=== PATIENT | female | born 1970 | race Caucasian/White ===

== ENCOUNTER → 2017-07-05 | Outpatient (CLI) | payer MEDICARE, OTHER ==
--- NOTE | 2017-07-05 11:59 | MM ---
Reason for exam: clinical finding. History: Family history of breast cancer in aunt at age 45 and breast cancer in aunt at age 50. Lumpectomy of both breasts, 2008. Indicated problem(s): non-bloody discharge in both breasts. Physical Findings: Nurse did not find any significant physical abnormalities on exam. MG 3D Diag Mammo W/Cad RODOLFO Bilateral CC and MLO view(s) were taken. The breast tissue is heterogeneously dense. This may lower the sensitivity of mammography. Nodularity upper outer quadrant left breast. Ultrasound is recommended. These results were verbally communicated with the patient and result sheet given to the patient on 07/05/17. ASSESSMENT: Incomplete: need additional imaging evaluation, BI-RAD 0 RECOMMENDATION: Ultrasound of the left breast. Manage patient on a clinical basis.
--- NOTE | 2017-07-05 12:03 | USB ---
Reason for exam: additional evaluation requested from abnormal screening. History: Family history of breast cancer in aunt at age 45 and breast cancer in aunt at age 50. Lumpectomy of both breasts, 2008. US Breast Limited LT Left breast ultrasound demonstrates a 0.41 x 0.34 x 0.4cm lesion too small to characterize at 12 o'clock, a 0.65 x 0.3 x 0.8cm solid lesion at the nipple for which a biopsy is recommended and a 0.35 x 0.21 x 0.5cm lesion too small to characterize at 4 o'clock. These results were verbally communicated with the patient and result sheet given to the patient on 07/05/17. ASSESSMENT: Suspicious, BI-RAD 4 RECOMMENDATION: Ultrasound core biopsy of the left breast. Manage patient on a clinical basis. Called with mammographic findings and has scheduled an appointment for the patient with Dr. Landers. Biopsy scheduled for 07/08/17 at 11:30. PRELIMINARY REPORT CALLED AND FAXED TO DR. LANDERS ON 07/05/17 /TMP.
== END | disposition home or self-care (01) ==
LOC: RADMAMWWP 10:20
PROVIDERS: ATTEND Family Medicine
DX: N64.52 Nipple discharge (principal)
CPT/HCPCS: 76642; G0204; G0279

== ENCOUNTER → 2017-07-05 | Outpatient (CLI) | payer MEDICARE, OTHER ==
--- NOTE | 2017-07-05 10:53 | US ---
EXAMINATION TYPE: US thyroid st tissue head/neck DATE OF EXAM: 07/05/2017 COMPARISON: NONE CLINICAL HISTORY: E03.9 Hypothyroidism. Total thyroidectomy 2010 Bilateral neck scanned, no evidence of lymphadenopathy or residual tissue growth. IMPRESSION: Total thyroidectomy changes without evidence for residual mass or residual thyroid kyle ballesteros.
== END | disposition home or self-care (01) ==
LOC: RADUSWWP 10:24
PROVIDERS: ATTEND Internal Medicine Endocrinology, Diabetes & Metabolism
DX: E89.0 Postprocedural hypothyroidism (principal)
CPT/HCPCS: 76536

== ENCOUNTER → 2017-07-15 | Day surgery (SDC) | payer MEDICARE, OTHER ==
[2017-07-15 11:32] VITALS: RESP 18; TEMP 98; BMI 37.0
--- NOTE | 2017-07-15 12:44 | USB ---
EXAMINATION TYPE: US biopsy breast VAD LT DATE OF EXAM: 07/15/2017 CLINICAL HISTORY: R92.8 ABN MAMMO. TECHNIQUE: Ultrasound guided core biopsy of left breast. COMPARISON: Ultrasound 07/05/2017 FINDINGS: The procedure of ultrasound guided core biopsy was explained to the patient. Benefits, alt ernatives, and risks were discussed. An informed consent was then obtained. The patient was placed in supine positioning for imaging and for the procedure. The overlying skin w as prepped and draped in usual sterile fashion. Lidocaine buffered with bicarbonate was used as anes thetic into the skin and subcutaneous tissue up to area of concern in the left breast. A singh was ma de with surgical scalpel. Under ultrasound guidance, a 12-gauge vacuum assisted biopsy gun device was used to obtain 5 core bebo ples. Following this, a biopsy clip was left in lesion. The patient tolerated the procedure well without any immediate complication. The patient was kept in the radiology department for short stay after the procedure and then discharged home in stable condi tion. Patient was sent to mammography for postclip placement imaging IMPRESSION: Successful, uncomplicated ultrasound guided core biopsy of area of concern in the left br east, full pathology results to follow. Recommendations: Recommendations are pending pathology results
[2017-07-15 14:52] VITALS: BP 114/78; PULSE 61
--- NOTE | 2017-07-19 08:25 | MM ---
Reason for exam: additional evaluation requested from abnormal screening. Last mammogram was performed less than 1 month ago. History: Family history of breast cancer in aunt at age 45 and breast cancer in aunt at age 50. Lumpectomy of both breasts, 2008. MG Diagnostic Mammo LT Wo CAD CC and LM view(s) were taken of the left breast. Prior study comparison: July 05, 2017, bilateral MG 3d diag mammo w/cad RODOLFO. ASSESSMENT: Post procedure mammogram for marker placement RECOMMENDATION: Ultrasound of the left breast in 6 months. PENDING PATHOLOGY RESULTS.
== END ==
LOC: RADUSWWP 11:00
PROVIDERS: ATTEND Family Medicine
DX: D24.2 Benign neoplasm of left breast (principal); N60.32 Fibrosclerosis of left breast; R92.8 Other abnormal and inconclusive findings on diagnostic imaging of breast; N60.02 Solitary cyst of left breast; N60.82 Other benign mammary dysplasias of left breast; N60.22 Fibroadenosis of left breast; N60.92 Unspecified benign mammary dysplasia of left breast; Z88.1 Allergy status to other antibiotic agents; Z88.5 Allergy status to narcotic agent
CPT/HCPCS: 88305; 19083; G0206; A4648; J2001

== ENCOUNTER → 2017-10-05 | Outpatient (CLI) | payer MEDICARE, OTHER ==
--- NOTE | 2017-10-05 13:25 | US ---
EXAMINATION TYPE: US venous doppler duplex LE RT DATE OF EXAM: 10/05/2017 12:58 PM COMPARISON: NONE CLINICAL HISTORY: RLE Pain and Swelling M79.661, R22.41. palpable lump right calf SIDE PERFORMED: Right TECHNIQUE: The lower extremity deep venous system is examined utilizing real time linear array sonog rishabh with graded compression, doppler sonography and color-flow sonography. VESSELS IMAGED: External Iliac Vein (EIV) Common Femoral Vein Deep Femoral Vein Greater Saphenous Vein * Femoral Vein Popliteal Vein Small Saphenous Vein * Proximal Calf Veins (* superficial vessels) Right Leg: Negative for DVT Cystic area visualized at the patient's area of concern measuring 0.3 x 0.3 x 0.3 cm. Grayscale, color doppler, spectral doppler imaging performed of the deep veins of the lower extremiti es. There is normal flow, compressibility, vascular waveforms. IMPRESSION: 1. No sonographic evidence of deep venous thrombosis within the right lower extremity. 2. In the region of the patient's palpable abnormality there is a subcutaneous 3 mm cyst. This could represent resolving hematoma or sequela of prior trauma. Short-term follow-up could be performed to e nsure stability.
== END | disposition home or self-care (01) ==
LOC: RADUSWWP 12:17
PROVIDERS: ATTEND Family Medicine
DX: L72.8 Other follicular cysts of the skin and subcutaneous tissue (principal)

== ENCOUNTER → 2019-09-06 | Outpatient (CLI) | payer MEDICARE, OTHER ==
--- NOTE | 2019-09-06 19:53 | CONS ---
CONSULTATION DATE OF SERVICE: 09/06/2019 This patient is a 49-year-old lady who has been evaluated in [facility] for possible obstructive sleep apnea-hypopnea syndrome. HISTORY OF PRESENT ILLNESS/SLEEP-WAKE EVALUATION: Patient's usual sleep schedule on working days is from 10 p.m. to 5 or 6 a.m. and on weekends from 11 p.m. until 6 or 7 a.m. Sometimes she has problems with falling asleep. She has a TV set in the bedroom. She sleeps in different positions with her . According to him, she has loud snoring and witnessed episodes of stopped breathing during sleep. The patient wakes up from sleep up to 6 times, with 2 episodes of nocturia and episodes of choking and gasping for air, panic attacks, palpitations, restless legs, sweating. During the day, the patient feels significantly sleepy. [place] Sleepiness Scale is in extremely high range at 20. She may take naps during the day, depending on whether her situation allows her to do it. She drinks 2 caffeinated beverages during the day. No history of hypnagogic hallucinations, sleep paralysis or cataplexy. PAST MEDICAL HISTORY: Past medical history is positive for: 1. Graves' disease. 2. Hypertension. 3. Migraine. PAST SURGICAL HISTORY: 1. Thyroidectomy for Graves' disease, presently on thyroid supplement. 2. Right knee surgery. 3. Bilateral breast lumpectomy, benign. 4. Sinus surgery and mid turbinate resection. MEDICATIONS: 1. Synthroid. 2. Toprol. 3. Clonidine. 4. Topamax. SOCIAL HISTORY: Positive for smoking occasionally. Quit in 1999. Alcohol consumption occasional. FAMILY HISTORY: Hypertension, angina, fibromyalgia, sinus problems, headaches, insomnia, sleep apnea, ulcers, thyroid problems, restless legs. REVIEW OF SYSTEMS: Multiple awakenings from sleep, tiredness and sleepiness during the day. PHYSICAL EXAMINATION: GENERAL: A pleasant lady without distress. VITAL SIGNS: BP 148/86, HR 69, RR 16, height 5 feet 7 inches, weight 270.0, body mass index 42.2, temperature 98.2, oxygen saturation at room air 97%. HEENT: PERRLA, EOMI. Evaluation of oropharynx showed tongue protrudes midline. Extremely low position of soft palate. Mallampati IV. Restriction of nasal breathing bilaterally. NECK: Supple. No JVD. Thyroid is not palpable. Wide neck; 15-1/2 inches in circumference. LUNGS: Clear to percussion and to auscultation. Good air exchange. No wheezing or rhonchi. HEART: S1, S2 regular. No murmurs, gallops or rubs. ABDOMEN: Obese. EXTREMITIES: No clubbing or cyanosis. 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 Cranial nerves 2 to 7 intact. There is no fasciculation or atrophy. noted. No focal deficits observed. IMPRESSION: 1. Loud snoring, multiple awakenings from sleep, extremely low position of soft palate, Mallampati IV, wide neck, significant excessive daytime sleepiness; obstructive sleep apnea-hypopnea syndrome. 2. Obesity with body mass index 42.2. 3. Hypertension. 4. Migraines. 5. History of Graves' disease, status post thyroidectomy. 6. Hypothyroidism, on thyroid hormone replacement treatment at present. 7. Status post section. 8. Status post tubal ligation. 9. Status post sinus surgery. 10.Status post right knee surgery. 11.Status post bilateral lumpectomy with benign results. PLAN: 1. Polysomnography for evaluation of patient's breathing during sleep. 2. CPAP/BiPAP titration if sleep study confirms obstructive sleep apnea-hypopnea syndrome. 3. Preferable position during sleep on the side. 4. No driving if patient feels any sleepiness. 5. I will see patient for follow up visit to explain results of testing and following plan. Thank you very much for referring this patient for consultation. Sincerely, Josef Menjivar MD, PhD, FAASM Diplomat of [employer] [facility] [place] MMODL / IJN: [id number] /
== END | disposition home or self-care (01) ==
LOC: SLEEP 14:22
PROVIDERS: ATTEND Internal Medicine
DX: G47.33 Obstructive sleep apnea (adult) (pediatric) (principal); E66.9 Obesity, unspecified; I10 Essential (primary) hypertension; G43.909 Migraine, unspecified, not intractable, without status migrainosus; E89.0 Postprocedural hypothyroidism; Z68.41 Body mass index [BMI] 40.0-44.9, adult; Z98.890 Other specified postprocedural states; Z86.2 Personal history of diseases of the blood and blood-forming organs and certain disorders involving the immune mechanism; Z98.51 Tubal ligation status; Z83.6 Family history of other diseases of the respiratory system; Z90.13 Acquired absence of bilateral breasts and nipples; Z79.899 Other long term (current) drug therapy; Z79.890 Hormone replacement therapy
CPT/HCPCS: 99211

== ENCOUNTER 2021-12-29 15:51 | Inpatient (IN) | payer OTHER, MEDICARE ==
[2021-12-29 16:20] LABS: ALT 182 U/L (4-34); AST 217 U/L (14-36); African American GFR (CKD) 84 (>60 ml/min/1.73 sqM); Albumin 4.9 g/dL (3.5-5.0); Alcohol <10 mg/dL; Alkaline Phosphatase 74 U/L (38-126); Anion Gap 11 mmol/L; Blood Urea Nitrogen 14 mg/dL (7-17); Calcium 9.7 mg/dL (8.4-10.2); Carbon Dioxide 25 mmol/L (22-30); Chloride 106 mmol/L (98-107); Glucose 191 mg/dL (74-99); Non-African American GFR(CKD) 73 (>60 ml/min/1.73 sqM); Potassium 4.2 mmol/L (3.5-5.1); Sodium 142 mmol/L (137-145); Total Bilirubin 0.7 mg/dL (0.2-1.3); Total Protein 7.9 g/dL (6.3-8.2)
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
[2021-12-29 16:30] LABS: Prothrombin Time 10.6 sec (9.0-12.0)
[2021-12-29 16:39] LABS: Basophils # (A) 0.1 k/uL (0-0.2); Basophils % (A) 1 %; Eosinophils # (A) 0.1 k/uL (0-0.7); Eosinophils % (A) 0 %; HCT 47.7 % (34.0-46.0); HGB 16.1 gm/dL (11.4-16.0); Lymphocytes # (A) 1.6 k/uL (1.0-4.8); Lymphocytes % (A) 7 %; MCH 31.7 pg (25.0-35.0); MCHC 33.8 g/dL (31.0-37.0); MCV 93.8 fL (80.0-100.0); Mean Platelet Volume 8.1; Monocytes # (A) 0.9 k/uL (0-1.0); Monocytes % (A) 4 %; Neutrophils # (A) 19.1 k/uL (1.3-7.7); Neutrophils % (A) 87 %; Partial Thromboplastin Time 19.8 sec (22.0-30.0); Platelet Count 269 k/uL (150-450); RBC 5.08 m/uL (3.80-5.40); RDW 13.8 % (11.5-15.5)
[2021-12-29 16:40] LABS: Glucose,Whole Blood 137 mg/dL (75-99)
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
[2021-12-29] MEDS ORDERED: NALOXONE 0.4 MG/ML 1 ML VIAL IV PRN (18:01)
[2021-12-29] MEDS ORDERED: fentaNYL (PF) 50 MCG/ML 2 ML AMP IVP STA (18:25)
[2021-12-29 18:38] LABS: Amphetamine Screen,Urine Not Detected (NotDetected); Appearance,Urine Clear (Clear); Barbiturate Screen,Urine Not Detected (NotDetected); Benzodiazepines Screen,Urine Detected (NotDetected); Bilirubin,Urine Negative (Negative); Blood,Urine Moderate (Negative); Cocaine Screen,Urine Not Detected (NotDetected); Color,Urine Yellow; Glucose,Urine (UA) Negative (Negative); Ketones,Urine 1+ (Negative); Leukocyte Esterase,Urine Negative (Negative); Methadone Screen, Urine Not Detected (NotDetected); Mucus,Urine Rare /hpf; Nitrite,Urine Negative (Negative); Opiate Screen,Urine Not Detected (NotDetected); Oxycodone Screen, Urine Not Detected (NotDetected); PH, Urine 6.5 (5.0-8.0); Phencyclidine Screen,Urine Not Detected (NotDetected); Protein,Urine 2+ (Negative); RBC,Urine 40 /hpf (0-5); Squamous Epithelial Cell,Urine <1 /hpf (0-4); Tricyclic Antidepressant,Urine Not Detected (NotDetected); Urn Cannabinoid Scrn Not Detected (NotDetected); Urobilinogen,Urine <2.0 mg/dL (<2.0); WBC,Urine 5 /hpf (0-5)
[2021-12-29 18:44] LABS: Specific Gravity,Urine >1.050 (1.001-1.035)
[2021-12-29] MEDS ORDERED: ONDANSETRON 4 MG/2 ML VIAL IVP PRN (18:54)
[2021-12-29] MEDS: SODIUM CHLORIDE 0.9% 1,000 ML IV SCH (19:27)
--- NOTE | 2021-12-29 19:59 | XR ---
EXAMINATION TYPE: XR chest 1V portable DATE OF EXAM: 12/29/2021 COMPARISON: Today HISTORY: Pain TECHNIQUE: FINDINGS: There is some patchy infiltrate in the left lower lobe. Right lung is clear. No heart failu re seen. Heart size is normal. There are no hilar masses. IMPRESSION: There is some left lower lobe infiltrate that could relate to pneumonia and is new compar ed to exam 4 hours ago.
--- NOTE | 2021-12-29 20:03 | XR ---
EXAMINATION TYPE: XR knee limited bilateral DATE OF EXAM: 12/29/2021 COMPARISON: NONE HISTORY: Pain TECHNIQUE: 2 views each knee FINDINGS: There is no evidence of fracture nor dislocation. Joint spaces are normal. There is rectang ular-shaped density in the soft tissues superior and lateral to the right patella. There is no sign o f a joint effusion. IMPRESSION: No fracture seen. There is evidence for soft tissue 9 mm foreign body at the superior anterior latera l right patella.
[2021-12-29 21:44] LABS: Glucose,Whole Blood 134 mg/dL (75-99)
[2021-12-30 05:00] LABS: Basophils % (A) 0 %; Eosinophils % (A) 0 %; HCT 41.3 % (34.0-46.0); HGB 13.6 gm/dL (11.4-16.0); Lymphocytes # (A) 1.4 k/uL (1.0-4.8); Lymphocytes % (A) 9 %; MCH 30.9 pg (25.0-35.0); MCV 93.9 fL (80.0-100.0); Mean Platelet Volume 7.9; Monocytes # (A) 0.9 k/uL (0-1.0); Monocytes % (A) 6 %; Neutrophils # (A) 13.7 k/uL (1.3-7.7); Neutrophils % (A) 83 %; Platelet Count 219 k/uL (150-450); RDW 13.9 % (11.5-15.5); WBC 16.5 k/uL (3.8-10.6)
[2021-12-30 05:46] LABS: ALT 168 U/L (4-34); AST 139 U/L (14-36); African American GFR (CKD) >90 (>60 ml/min/1.73 sqM); Alkaline Phosphatase 54 U/L (38-126); Anion Gap 9 mmol/L; Blood Urea Nitrogen 16 mg/dL (7-17); Calcium 8.7 mg/dL (8.4-10.2); Carbon Dioxide 21 mmol/L (22-30); Chloride 106 mmol/L (98-107); Glucose 134 mg/dL (74-99); Non-African American GFR(CKD) >90 (>60 ml/min/1.73 sqM); Potassium 3.7 mmol/L (3.5-5.1); Sodium 136 mmol/L (137-145); Total Bilirubin 0.7 mg/dL (0.2-1.3); Total Protein 6.4 g/dL (6.3-8.2)
[2021-12-30] MEDS: SODIUM CHLORIDE 0.9% 1,000 ML IV SCH ×2 (08:03→21:59)
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
--- NOTE | 2021-12-30 09:32 | XR ---
EXAMINATION TYPE: XR chest 1V portable DATE OF EXAM: 12/30/2021 COMPARISON: 12/29/2021 HISTORY: Follow-up pneumothorax TECHNIQUE: Single frontal view of the chest is obtained. FINDINGS: There is limited inspiration with cardiomegaly and basilar subsegmental consolidation. No pneumothorax. No sizable pleural effusion on the right. Tiny left pleural effusion. Hypertrophic anaya ges of the spine. IMPRESSION: Basilar atelectasis favored over infiltrate with tiny left effusion.
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
[2021-12-30] MEDS: HYDROmorphone 1 MG/ML 1 ML SYRINGE IVP PRN ×4 (14:51→23:26)
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
[2021-12-30] MEDS: METOPROLOL SUCCINATE (ER) 50 MG TAB.ER.24H PO SCH (21:58)
[2021-12-30] MEDS: ALPRAZolam 0.25 MG TAB PO PRN (21:58)
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
[2021-12-31] MEDS: HYDROmorphone 1 MG/ML 1 ML SYRINGE IVP PRN ×4 (03:14→23:30)
[2021-12-31] MEDS: LEVOTHYROXINE 88 MCG TAB PO SCH (06:28)
[2021-12-31] MEDS: FAMOTIDINE 20 MG/2 ML VIAL IV SCH ×2 (07:54→19:57)
[2021-12-31] MEDS ORDERED: HYDROcodone/APAP 5-325MG 1 EACH TAB PO PRN (08:07)
[2021-12-31] MEDS: METOPROLOL SUCCINATE (ER) 50 MG TAB.ER.24H PO SCH ×2 (08:20→19:55)
[2021-12-31] MEDS: ALPRAZolam 0.25 MG TAB PO PRN ×2 (08:21→19:55)
[2021-12-31 09:02] LABS: African American GFR (CKD) 117.1 (60.0-200.0); Albumin 3.7 g/dL (3.8-4.9); Albumin/Globulin Ratio 1.95 (1.60-3.17); Anion Gap 12.8 mmol/L (10.00-18.00); BUN/Creat Ratio 17.57 Ratio (12.00-20.00); Blood Urea Nitrogen 12.3 mg/dL (9.0-27.0); Calcium 8.2 mg/dL (8.7-10.3); Carbon Dioxide 22.2 mmol/L (20.0-27.5); Globulin 1.9 g/dL (1.6-3.3); Potassium 3.9 mmol/L (3.5-5.5); Total Bilirubin 0.3 mg/dL (0.30-1.20); Total Protein 5.6 g/dL (6.2-8.2)
[2021-12-31 09:36] LABS: Basophils # (A) 0.05 X 10*3/uL (0.00-0.10); Basophils % (A) 0.4 %; Eosinophils % (A) 0.8 %; HGB 10.8 g/dL (12.0-15.0); Immature Grans, Automated 0.7 %; Lymphocytes # (A) 1.86 X 10*3/uL (0.90-5.00); Lymphocytes % (A) 14.8 %; MCH 30.8 pg (27.0-32.0); MCHC 32.7 g/dL (32.0-37.0); Monocytes # (A) 1.27 X 10*3/uL (0.20-1.00); Monocytes % (A) 10.1 %; NRBC Per 100 WBC 0 /100 WBCS (0.0-0.0); Neutrophils # (A) 9.17 X 10*3/uL (1.80-7.70); Neutrophils % (A) 73.2 %; Platelet Count 149 X 10*3/uL (140-440); RBC 3.51 X 10*6/uL (4.10-5.20); RDW 13.4 % (11.5-14.5); WBC 12.54 X 10*3/uL (4.50-10.00)
[2021-12-31] MEDS ORDERED: LORazepam 2 MG/ML INJ IM STA (09:57)
[2021-12-31] MEDS ORDERED: HALOPERIDOL LACTATE 5 MG/ML 1 ML VIAL IM PRN (09:57)
[2021-12-31] MEDS ORDERED: HALOPERIDOL LACTATE 5 MG/ML 1 ML VIAL ONE (09:58)
[2021-12-31] MEDS ORDERED: LORazepam 2 MG/ML INJ ONE (10:00)
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
--- NOTE | 2021-12-31 13:44 | P.PN ---
Progress Note - Text Progress Note Date: 12/31/21 Interval History: Patient was seen sitting upright in her chair and was directable and agreeable to speak with radio script writer in her room. Currently, the patient continues to be religiously preoccupied. She states that she is Denzel and that we have to believe that she is Denzel. She reports that in order to spread her words she needs to step on the ground that others may feel in here her word. The patient did have a Mr. antony called on her this morning due to agitation and received Ativan and Haldol IM due to her presentation. The patient is currently, this time. She is currently denying any suicidal or homicidal ideation, intention, and/or plan. Not endorsing any hallucinations at this time. The patient does not believe that she is mentally ill and states that she does not require any psychiatric treatment. Mental Status Exam: General Appearance: Patient appears to be stated age is alert, difficult to direct, and intermittently cooperative. Behavior: Patient is calmly seated without any agitated behavior. Speech: Patient's speech is fluent and nonpressured. Mood/Affect: Mood is upset, affect is intense and angry Suicidality/Homicidality: Patient denies having any suicidal or homicidal ideation intent or plan. Perceptions: Patient denies any visual hallucinations and denies any auditory hallucinations Though content/process: Patient is endorsing grandiose and religiously preoccupied delusions. Thought process is fixated on "spreading the word." She is responding to internal stimuli. Memory and concentration: AOX3, grossly intact for the purposes of this session Judgment and insight: Very poor. Assessment Acute psychosis Rule out schizophrenia Rule out bipolar disorder Plan: -At this time patient DOES meet criteria for inpatient psychiatric admission. -Would recommend the following medication changes/additions: Haldol 5 mg IM every 6 hours when necessary for agitation -Continue 1:1 sitter for safety -Cannot leave AMA at this time. Patient will need a petition and certification if attempting to leave AMA. -When medically stable, patient is eligible for transfer to a psych bed when available. -Psychiatry will continue to follow
[2021-12-31] MEDS: LIDOCAINE 5% PATCH TOPICAL SCH (18:35)
[2021-12-31] MEDS: SODIUM CHLORIDE 0.9% 1,000 ML IV SCH (18:35)
[2021-12-31 20:16] VITALS: TEMP 98.4
[2022-01-01] MEDS: FAMOTIDINE 20 MG/2 ML VIAL IV SCH ×2 (00:06→07:45)
[2022-01-01] MEDS: HYDROcodone/APAP 10-325MG 1 EACH TAB PO PRN ×3 (02:40→13:36)
[2022-01-01] MEDS: HYDROmorphone 1 MG/ML 1 ML SYRINGE IVP PRN (04:49)
[2022-01-01] MEDS: SODIUM CHLORIDE 0.9% 1,000 ML IV SCH (05:01)
[2022-01-01] MEDS: LEVOTHYROXINE 88 MCG TAB PO SCH (05:03)
[2022-01-01] MEDS: ALPRAZolam 0.25 MG TAB PO PRN (07:45)
[2022-01-01 07:50] VITALS: BP 136/73; PULSE 88; RESP 17
[2022-01-01] MEDS: METOPROLOL SUCCINATE (ER) 50 MG TAB.ER.24H PO SCH (08:40)
[2022-01-01] MEDS: LIDOCAINE 5% PATCH TOPICAL SCH (08:41)
--- NOTE | 2022-01-01 08:51 | CONS ---
CONSULTATION DATE OF CONSULTATION: 12/30/21 I have seen, examined, and agree with the midlevel's findings. I met with this patient for 45 minutes during this consultation. YOAV / TOM: [id number] / -02
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
[2022-01-01] MEDS ORDERED: LIDOCAINE 5% PATCH TOPICAL SCH (11:00)
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
== END 2022-01-01 13:49 | DRG 200 ==
LOC: EC 15:51 → 2SICU 18:01 → 4SSUR 12-30 18:36
PROVIDERS: ADMIT Surgery; ATTEND Surgery
DX: S27.2XXA Traumatic hemopneumothorax, initial encounter (principal); S22.32XA Fracture of one rib, left side, initial encounter for closed fracture; S27.321A Contusion of lung, unilateral, initial encounter; F23 Brief psychotic disorder; R45.851 Suicidal ideations; S26.91XA Contusion of heart, unspecified with or without hemopericardium, initial encounter; Z20.822 Contact with and (suspected) exposure to COVID-19; F43.10 Post-traumatic stress disorder, unspecified; I10 Essential (primary) hypertension; E66.9 Obesity, unspecified; F32.A Depression, unspecified; G47.33 Obstructive sleep apnea (adult) (pediatric); F17.200 Nicotine dependence, unspecified, uncomplicated; E89.0 Postprocedural hypothyroidism; Z98.890 Other specified postprocedural states; V48.5XXA Car driver injured in noncollision transport accident in traffic accident, initial encounter; Z68.37 Body mass index [BMI] 37.0-37.9, adult; Y92.410 Unspecified street and highway as the place of occurrence of the external cause; Z79.890 Hormone replacement therapy; Z79.899 Other long term (current) drug therapy; Z90.710 Acquired absence of both cervix and uterus; Z98.51 Tubal ligation status
CPT/HCPCS: 36415; 70450; 71045; 71260; 72125; 72170; 74177; 80053; 80306; 80320; 81001; 84484; 85025; 85610; 85730; 86850; 86900; 86901; 87635; 93005; 93306; 96374; 99285

== ENCOUNTER 2022-01-01 14:09 | Inpatient (IN) | payer MEDICARE ==
[2022-01-01] MEDS ORDERED: HALOPERIDOL LACTATE 5 MG/ML 1 ML VIAL IM PRN (14:27)
[2022-01-01] MEDS ORDERED: HYDROcodone/APAP 5-325MG 1 EACH TAB PO PRN (14:29)
[2022-01-01] MEDS ORDERED: NICOTINE 14MG/24HR PATCH TRANSDERM SCH (14:30)
[2022-01-01] MEDS ORDERED: haloperidoL 5 MG TAB PO PRN (14:30)
[2022-01-01] MEDS ORDERED: LORazepam 2 MG/ML INJ IM PRN (14:31)
[2022-01-01] MEDS ORDERED: LORazepam 1 MG TAB PO STA (16:39)
[2022-01-01] MEDS: diphenhydrAMINE 25 MG CAP PO PRN (16:55)
[2022-01-01] MEDS: METOPROLOL SUCCINATE (ER) 50 MG TAB.ER.24H PO SCH (21:23)
[2022-01-01] MEDS: LORazepam 1 MG TAB PO PRN (23:28)
[2022-01-02] MEDS ORDERED: LIDOCAINE 5% PATCH TOPICAL SCH (00:30)
[2022-01-02] MEDS: LIDOCAINE 5% PATCH TOPICAL SCH ×2 (00:59→01:01)
[2022-01-02] MEDS: HYDROcodone/APAP 7.5-325MG 1 EACH TAB PO PRN ×4 (01:03→18:33)
[2022-01-02] MEDS ORDERED: LEVOTHYROXINE 75 MCG TAB PO SCH (06:30)
[2022-01-02] MEDS ORDERED: LEVOTHYROXINE 100 MCG TAB PO SCH (06:30)
[2022-01-02] MEDS: LORazepam 1 MG TAB PO PRN ×2 (06:37→21:34)
[2022-01-02] MEDS: METOPROLOL SUCCINATE (ER) 50 MG TAB.ER.24H PO SCH ×2 (09:34→20:53)
[2022-01-02] MEDS: diphenhydrAMINE 25 MG CAP PO PRN (09:36)
[2022-01-02 10:03] LABS: ALT 55 U/L (4-34); AST 38 U/L (14-36); African American GFR (CKD) >90 (>60 ml/min/1.73 sqM); Albumin 3.9 g/dL (3.5-5.0); Alkaline Phosphatase 54 U/L (38-126); Anion Gap 10 mmol/L; Blood Urea Nitrogen 11 mg/dL (7-17); Calcium 8.8 mg/dL (8.4-10.2); Carbon Dioxide 25 mmol/L (22-30); Chloride 102 mmol/L (98-107); Glucose 141 mg/dL (74-99); Non-African American GFR(CKD) >90 (>60 ml/min/1.73 sqM); Potassium 3.8 mmol/L (3.5-5.1); Sodium 137 mmol/L (137-145); Total Bilirubin 0.8 mg/dL (0.2-1.3); Total Protein 6.5 g/dL (6.3-8.2)
[2022-01-02 12:39] LABS: T4, Free (Free Thyroxine) 1.04 ng/dL (0.78-2.19)
[2022-01-02] MEDS ORDERED: THYROID, PORK 30 MG TAB PO SCH (14:15)
[2022-01-02] MEDS: THYROID, PORK 30 MG TAB PO SCH (15:01)
[2022-01-02] MEDS: GABAPENTIN 100 MG CAP PO SCH ×2 (15:03→20:52)
[2022-01-02] MEDS: MAG HYDROX/AL HYDROX/SIMETH 30 ML CUP PO PRN (16:39)
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
--- NOTE | 2022-01-02 20:38 | XR ---
EXAMINATION TYPE: XR chest 1V portable DATE OF EXAM: 01/02/2022 COMPARISON: 12/30/2021 HISTORY: Chest pain TECHNIQUE: Single view FINDINGS: There is subsegmental atelectasis left lower lobe. Right lung is clear. There is no heart f ailure. Heart and mediastinum are normal. There is no pleural effusion. IMPRESSION: There is some mild atelectasis left lower lung field which is new compared to old exam.
[2022-01-03] MEDS: HYDROcodone/APAP 7.5-325MG 1 EACH TAB PO PRN ×4 (01:49→20:50)
[2022-01-03] MEDS: LIDOCAINE 5% PATCH TOPICAL SCH ×2 (01:51→01:52)
[2022-01-03] MEDS: THYROID, PORK 30 MG TAB PO SCH (06:38)
[2022-01-03] MEDS: diphenhydrAMINE 25 MG CAP PO PRN ×2 (06:40→22:26)
[2022-01-03] MEDS: METOPROLOL SUCCINATE (ER) 50 MG TAB.ER.24H PO SCH ×2 (07:56→20:50)
[2022-01-03] MEDS: GABAPENTIN 100 MG CAP PO SCH ×3 (09:19→20:47)
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
[2022-01-03] MEDS: MAG HYDROX/AL HYDROX/SIMETH 30 ML CUP PO PRN ×2 (12:48→21:17)
[2022-01-03] MEDS: MAGNESIUM HYDROXIDE 2,400 MG/10 ML CUP PO PRN (13:38)
[2022-01-03] MEDS: LORazepam 1 MG TAB PO PRN ×2 (13:46→22:26)
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
[2022-01-04] MEDS: GABAPENTIN 100 MG CAP PO SCH ×2 (01:00→10:09)
[2022-01-04] MEDS: LIDOCAINE 5% PATCH TOPICAL SCH ×2 (03:31)
[2022-01-04] MEDS: HYDROcodone/APAP 7.5-325MG 1 EACH TAB PO PRN ×4 (03:56→21:14)
[2022-01-04 04:08] VITALS: TEMP 97.6
[2022-01-04] MEDS: THYROID, PORK 30 MG TAB PO SCH (07:12)
[2022-01-04] MEDS: METOPROLOL SUCCINATE (ER) 50 MG TAB.ER.24H PO SCH ×2 (07:13→21:13)
[2022-01-04] MEDS: MAGNESIUM HYDROXIDE 2,400 MG/10 ML CUP PO PRN (09:12)
[2022-01-04] MEDS: MAG HYDROX/AL HYDROX/SIMETH 30 ML CUP PO PRN ×2 (09:12→13:55)
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
[2022-01-04] MEDS ORDERED: DOCUSATE 100 MG CAP PO PRN (14:57)
[2022-01-04] MEDS ORDERED: GABAPENTIN 100 MG CAP PO SCH (16:00)
[2022-01-04] MEDS ORDERED: GABAPENTIN 300 MG CAP PO SCH (16:00)
[2022-01-04] MEDS: ACETAMINOPHEN TAB 325 MG TAB PO PRN (19:03)
[2022-01-04] MEDS: diphenhydrAMINE 25 MG CAP PO PRN (19:03)
[2022-01-04] MEDS ORDERED: LIDOCAINE 5% PATCH TOPICAL SCH ×2 (20:00)
[2022-01-04] MEDS: risperiDONE 0.5 MG TAB PO SCH (21:13)
[2022-01-04] MEDS: LORazepam 1 MG TAB PO PRN (23:03)
[2022-01-05] MEDS: THYROID, PORK 30 MG TAB PO SCH (05:17)
[2022-01-05] MEDS: HYDROcodone/APAP 7.5-325MG 1 EACH TAB PO PRN ×2 (05:21→11:41)
[2022-01-05] MEDS: METOPROLOL SUCCINATE (ER) 50 MG TAB.ER.24H PO SCH (07:49)
[2022-01-05] MEDS: risperiDONE 0.5 MG TAB PO SCH (07:51)
[2022-01-05 07:55] VITALS: BP 122/65; PULSE 88; RESP 20
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
[2022-01-05] MEDS: diphenhydrAMINE 25 MG CAP PO PRN (10:21)
[2022-01-05] MEDS: ACETAMINOPHEN TAB 325 MG TAB PO PRN (10:21)
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
[2022-01-05] MEDS: MAG HYDROX/AL HYDROX/SIMETH 30 ML CUP PO PRN (11:03)
== END 2022-01-05 12:38 | disposition home or self-care (01) | DRG 885 ==
LOC: 3MHU 14:15
PROVIDERS: ADMIT Psychiatry & Neurology Psychiatry; ATTEND Psychiatry & Neurology Psychiatry
DX: F23 Brief psychotic disorder (principal); S27.329A Contusion of lung, unspecified, initial encounter; S22.32XA Fracture of one rib, left side, initial encounter for closed fracture; F07.81 Postconcussional syndrome; E03.8 Other specified hypothyroidism; I10 Essential (primary) hypertension; G47.30 Sleep apnea, unspecified; F43.10 Post-traumatic stress disorder, unspecified; F41.8 Other specified anxiety disorders; M54.9 Dorsalgia, unspecified; R74.01 Elevation of levels of liver transaminase levels; M79.18 Myalgia, other site; E66.9 Obesity, unspecified; Z68.37 Body mass index [BMI] 37.0-37.9, adult; F17.200 Nicotine dependence, unspecified, uncomplicated; Z79.890 Hormone replacement therapy; Z79.899 Other long term (current) drug therapy; Z86.69 Personal history of other diseases of the nervous system and sense organs; Z98.891 History of uterine scar from previous surgery; Z90.710 Acquired absence of both cervix and uterus; Z87.42 Personal history of other diseases of the female genital tract; Z98.51 Tubal ligation status; Z87.39 Personal history of other diseases of the musculoskeletal system and connective tissue; Z98.890 Other specified postprocedural states; Z71.51 Drug abuse counseling and surveillance of drug abuser; Z88.6 Allergy status to analgesic agent; Z88.1 Allergy status to other antibiotic agents; Z88.5 Allergy status to narcotic agent; V89.2XXA Person injured in unspecified motor-vehicle accident, traffic, initial encounter; Y92.410 Unspecified street and highway as the place of occurrence of the external cause
CPT/HCPCS: 71045; 80053; 84439; 84443; 95819

== ENCOUNTER 2025-05-28 12:11 | Inpatient (IN) | payer MEDICARE, MEDICAID ==
--- NOTE | 2025-05-28 13:31 | ED ---
Psych HPI - General Chief Complaint: Psychiatric Symptoms Stated Complaint: Mental health, suicidal Time Seen by Provider: 05/28/25 12:17 Source: patient, EMS Mode of arrival: EMS - History of Present Illness Initial Comments: 54-year-old female who presents emergency department from [facility]. Patient was sent over for admission. She does have a history of PTSD, closed head injury who was making statements that she was having intrusive thoughts and not sleeping. Patient has been hospitalized many times. Reports to recent medication changes which she states she does not feel are working for her. She feels distant from reality. Patient does admit to compliance with her medications. Denies suicidal or homicidal ideations. No other alleviating, precipitating modifying factors - Related Data Home Medications Medication Instructions Recorded Confirmed diphenhydrAMINE [Benadryl] 50 mg PO BID PRN 12/29/21 05/28/25 Ergocalciferol [Vitamin D2 (1250 1,250 mcg PO MO 05/28/25 05/28/25 Mcg = 30501 Iu)] FLUoxetine HCL [PROzac] 20 mg PO DAILY 05/28/25 05/28/25 Ibuprofen [Motrin] 600 mg PO BID PRN 05/28/25 05/28/25 Iloperidone [Fanapt] 1 mg PO BID 05/28/25 05/28/25 Levothyroxine Sodium [Synthroid] 175 mcg PO DAILY 05/28/25 05/28/25 Meclizine [Antivert] 25 mg PO BID PRN 05/28/25 05/28/25 Meloxicam [Mobic] 15 mg PO DAILY PRN 05/28/25 05/28/25 Metoprolol Tartrate [Lopressor] 50 mg PO DAILY 05/28/25 05/28/25 Ondansetron [Zofran] 4 mg PO BID PRN 05/28/25 05/28/25 Prazosin [Minipress] 1 mg PO HS 05/28/25 05/28/25 Topiramate [Topamax] 50 mg PO BID 05/28/25 05/28/25 Topiramate [Topamax] 100 mg PO BID 05/28/25 05/28/25 Vitamin B Complex 1 cap PO DAILY 05/28/25 05/28/25 metFORMIN HCL 1,000 mg PO DAILY 05/28/25 05/28/25 Allergies Allergy/AdvReac Type Severity Reaction Status Date / Time morphine Allergy Intermediate Itching Verified 05/28/25 14:53 adhesive Allergy Unknown Unknown Verified 05/28/25 19:15 latex Allergy Unknown Unknown Verified 05/28/25 19:15 clarithromycin [From Biaxin] Allergy Anaphylaxis Verified 05/28/25 14:53 ibuprofen [From Motrin] AdvReac cannot Verified 05/28/25 14:53 take because of Bariatric surgery Review of Systems ROS Statement: Those systems with pertinent positive or pertinent negative responses have been documented in the HPI. ROS Other: All systems not noted in ROS Statement are negative. Past Medical History Past Medical History: Hypertension, Sleep Apnea/CPAP/BIPAP, Thyroid Disorder Additional Past Medical History / Comment(s): ? Seizures History of Any Multi-Drug Resistant Organisms: None Reported Past Surgical History: Section, Hysterectomy, Orthopedic Surgery, Tubal Ligation Additional Past Surgical History / Comment(s): sinus, lumpectomy, thyroid Past Anesthesia/Blood Transfusion Reactions: No Reported Reaction Past Psychological History: Anxiety, PTSD Smoking Status: Former smoker Past Alcohol Use History: Occasional Past Drug Use History: None Reported General Exam Limitations: no limitations General appearance: alert Head exam: Present: atraumatic, normocephalic, normal inspection Eye exam: Present: normal appearance, PERRL, EOMI. Absent: scleral icterus, conjunctival injection, periorbital swelling ENT exam: Present: normal exam, mucous membranes moist Neck exam: Present: normal inspection. Absent: tenderness, meningismus, lymphadenopathy Respiratory exam: Present: normal lung sounds bilaterally. Absent: respiratory distress, wheezes, rales, rhonchi, stridor Cardiovascular Exam: Present: regular rate Neurological exam: Present: alert, oriented X3 Psychiatric exam: Present: flat affect Course Vital Signs 05/28/25 05/28/25 12:15 17:51 Temperature 97.3 F L 97.7 F Pulse Rate 101 H Pulse Rate [ 71 Left Pulse Oximetery] Respiratory 18 16 Rate Blood Pressure 125/86 O2 Sat by Pulse 100 97 Oximetry Medical Decision Making - Medical Decision Making Was pt. sent in by a medical professional or institution (, PA, ENVIRONMENTAL PROTECTION INSPECTOR, urgent care, hospital, or [facility]...) When possible be specific @ -Patient was sent in by [facility] Did you speak to anyone other than the patient for history (EMS, parent, family, police, friend...)? What history was obtained from this source @ -No Did you review nursing and triage notes (agree or disagree)? Why? @ -I reviewed and agree with nursing and triage notes Were old charts reviewed (outside hosp., previous admission, EMS record, old EKG, old radiological studies, urgent care reports/EKG's, [facility] records)? Report findings @ -No old charts were reviewed Differential Diagnosis (chest pain, altered mental status, abdominal pain women, abdominal pain men, vaginal bleeding, weakness, fever, dyspnea, syncope, headache, dizziness, GI bleed, back pain, seizure, CVA, palpatations, mental health, musculoskeletal)? @ -Differential Mental Health Depression, anxiety, bipolar, psychosis, schizophrenia, borderline personality, situational depression, adjustment disorder, behavioral disorder, brain tumor, malingering, substance abuse, encephalopathy, medication reaction, dementia, hypothyroidism, degenerative neurologic disorder, lupus.... This is not meant to be all-inclusive list EKG interpreted by me (3pts min.). @ -Yes which demonstrates sinus rhythm with rate of 65. AR interval 196. QRS 82. QTc of 395. No acute ST segment elevations or depressions X-rays interpreted by me (1pt min.). @ -None done CT interpreted by me (1pt min.). @ -None done U/S interpreted by me (1pt. min.). @ -None done What testing was considered but not performed or refused? (CT, X-rays, U/S, labs)? Why? @ -None What meds were considered but not given or refused? Why? @ -None Did you discuss the management of the patient with other professionals (professionals i.e. , PA, ENVIRONMENTAL PROTECTION INSPECTOR, lab, RT, psych nurse, social worker clinical, tariff clerk, teacher, air defense control officer, case fitter)? Give summary @ -Spoke with EPS who will admit the patient Was smoking cessation discussed for >3mins.? @ -No Was critical care preformed (if so, how long)? @ -No Were there social determinants of health that impacted care today? How? (Homelessness, low income, unemployed, alcoholism, drug addiction, transportation, low edu. Level, literacy, decrease access to med. care, nursing home, rehab)? @ -No Was there de-escalation of care discussed even if they declined (Discuss DNR or withdrawal of care, Hospice)? DNR status @ -No What co-morbidities impacted this encounter? (DM, HTN, Smoking, COPD, CAD, Cancer, CVA, ARF, Chemo, Hep., AIDS, mental health diagnosis, sleep apnea, morbid obesity)? @ -PTSD, closed head injury Was patient admitted / discharged? Hospital course, mention meds given and route, prescriptions, significant lab abnormalities, going to OR and other pertinent info. @ -Upon arrival patient seen and evaluated in bed 14. Thorough history and physical exam was performed. IV access was established and laboratory studies are conducted. Free T4 is slightly elevated. Patient is made medically clear for EPS. They do evaluate the patient and she requires admission. Patient admitted to [facility] [address]. in stable condition Undiagnosed new problem with uncertain prognosis? @ -No Drug Therapy requiring intensive monitoring for toxicity (Heparin, Nitro, Insu mike, Cardizem)? @ -No Were any procedures done? @ -No Diagnosis/symptom? @ -Acute psychosis, history of PTSD Acute, or Chronic, or Acute on Chronic? @ -Acute on chronic Uncomplicated (without systemic symptoms) or Complicated (systemic symptoms)? @ -Complicated Side effects of treatment? @ -No Exacerbation, Progression, or Severe Exacerbation? @ -No Poses a threat to life or bodily function? How? (Chest pain, USA, MD, pneumonia, PE, COPD, DKA, ARF, appy, cholecystitis, CVA, Diverticulitis, Homicidal, Suicidal, threat to staff... and all critical care pts) @ -No - Lab Data Result diagrams: 05/28/25 13:26 05/28/25 13:26 Lab Results 05/28/25 05/28/25 05/28/25 Range/Units 12:49 12:49 12:59 WBC (4.50-10.00) 10*3/uL RBC (4.10-5.20) 10*6/uL Hgb (12.0-15.0) g/dL Hct (37.2-46.3) % MCV (80.0-97.0) fL MCH (27.0-32.0) pg MCHC (32.0-37.0) g/dL Plt Count (140-440) 10*3/uL MPV (9.5-12.2) fL Immature Gran % (Auto) % Neutrophils % % Lymphocytes % % Monocytes % % Eosinophils % % Basophils % % Immature Gran # (0.00-0.04) 10*3/uL Neutrophils # (1.80-7.70) 10*3/uL Lymphocytes # (0.90-5.00) 10*3/uL Monocytes # (0.20-1.00) 10*3/uL Eosinophils # (0.04-0.35) 10*3/uL Basophils # (0.00-0.10) 10*3/uL Sodium (137-145) mmol/L Potassium (3.5-5.1) mmol/L Chloride (98-107) mmol/L Carbon Dioxide (22-30) mmol/L Anion Gap mmol/L BUN (7-17) mg/dL Creatinine (0.52-1.04) mg/dL Est GFR (CKD-EPI)AfAm (>60 ml/min/1.73 sqM) Est GFR (CKD-EPI)NonAf (>60 ml/min/1.73 sqM) Glucose (74-99) mg/dL Estimated Ave Glu mg/dL mg/dL Hemoglobin A1c (<=6.0) % Calcium (8.4-10.2) mg/dL Total Bilirubin (0.2-1.3) mg/dL AST (14-36) U/L ALT (4-34) U/L Alkaline Phosphatase (38-126) U/L Total Protein (6.3-8.2) g/dL Albumin (3.5-5.0) g/dL Triglycerides (0.00-149.00) mg/dL Cholesterol (0.00-200.00) mg/dL LDL Cholesterol, Calc (0.0-131.0) mg/dL VLDL Cholesterol, Calc (5.00-40.00) mg/dL HDL Cholesterol (40.00-60.00) mg/dL Cholesterol/HDL Ratio Ratio TSH (0.465-4.680) mIU/L Free T4 (0.78-2.19) ng/dL Urine Color Colorless Urine Appearance Clear (Clear) Urine pH 6.5 (5.0-8.0) Ur Specific Leon 1.007 (1.001-1.035) Urine Protein Negative (Negative) Urine Glucose (UA) Negative (Negative) Urine Ketones Negative (Negative) Urine Blood Negative (Negative) Urine Nitrite Negative (Negative) Urine Bilirubin Negative (Negative) Urine Urobilinogen <2.0 (<2.0) mg/dL Ur Leukocyte Esterase Trace H (Negative) Urine RBC 1 (0-5) /hpf Urine WBC 1 (0-5) /hpf Ur Squamous Epith Cells <1 (0-4) /hpf Urine Bacteria Rare H (None) /hpf Urine Opiates Screen Not Detected (NotDetected) Ur Oxycodone Screen Not Detected (NotDetected) Urine Methadone Screen Not Detected (NotDetected) Ur Barbiturates Screen Not Detected (NotDetected) U Tricyclic Antidepress Not Detected (NotDetected) Ur Phencyclidine Scrn Not Detected (NotDetected) Ur Amphetamines Screen Not Detected (NotDetected) U Methamphetamines Scrn Not Detected (NotDetected) U Benzodiazepines Scrn Not Detected (NotDetected) Urine Cocaine Screen Not Detected (NotDetected) U Marijuana (THC) Screen Not Detected (NotDetected) SARS-CoV-2 (PCR) Not Detected (Not Detectd) 05/28/25 05/28/25 05/28/25 Range/Units 13:26 13:26 13:26 WBC 6.68 (4.50-10.00) 10*3/uL RBC 4.48 (4.10-5.20) 10*6/uL Hgb 13.6 (12.0-15.0) g/dL Hct 40.2 (37.2-46.3) % MCV 89.7 (80.0-97.0) fL MCH 30.4 (27.0-32.0) pg MCHC 33.8 (32.0-37.0) g/dL Plt Count 190 (140-440) 10*3/uL MPV 10.1 (9.5-12.2) fL Immature Gran % (Auto) 0.1 % Neutrophils % 64.3 % Lymphocytes % 24.1 % Monocytes % 9.3 % Eosinophils % 1.6 % Basophils % 0.6 % Immature Gran # 0.01 (0.00-0.04) 10*3/uL Neutrophils # 4.29 (1.80-7.70) 10*3/uL Lymphocytes # 1.61 (0.90-5.00) 10*3/uL Monocytes # 0.62 (0.20-1.00) 10*3/uL Eosinophils # 0.11 (0.04-0.35) 10*3/uL Basophils # 0.04 (0.00-0.10) 10*3/uL Sodium 143 (137-145) mmol/L Potassium 4.2 (3.5-5.1) mmol/L Chloride 112 H (98-107) mmol/L Carbon Dioxide 19 L (22-30) mmol/L Anion Gap 12 mmol/L BUN 17 (7-17) mg/dL Creatinine 0.90 (0.52-1.04) mg/dL Est GFR (CKD-EPI)AfAm 85 (>60 ml/min/1.73 sqM) Est GFR (CKD-EPI)NonAf 74 (>60 ml/min/1.73 sqM) Glucose 108 H (74-99) mg/dL Estimated Ave Glu mg/dL 108 mg/dL Hemoglobin A1c 5.4 (<=6.0) % Calcium 9.4 (8.4-10.2) mg/dL Total Bilirubin 0.3 (0.2-1.3) mg/dL AST 17 (14-36) U/L ALT 24 (4-34) U/L Alkaline Phosphatase 46 (38-126) U/L Total Protein 6.4 (6.3-8.2) g/dL Albumin 4.1 (3.5-5.0) g/dL Triglycerides (0.00-149.00) mg/dL Cholesterol (0.00-200.00) mg/dL LDL Cholesterol, Calc (0.0-131.0) mg/dL VLDL Cholesterol, Calc (5.00-40.00) mg/dL HDL Cholesterol (40.00-60.00) mg/dL Cholesterol/HDL Ratio Ratio TSH <0.015 L (0.465-4.680) mIU/L Free T4 2.46 H (0.78-2.19) ng/dL Urine Color Urine Appearance (Clear) Urine pH (5.0-8.0) Ur Specific Leon (1.001-1.035) Urine Protein (Negative) Urine Glucose (UA) (Negative) Urine Ketones (Negative) Urine Blood (Negative) Urine Nitrite (Negative) Urine Bilirubin (Negative) Urine Urobilinogen (<2.0) mg/dL Ur Leukocyte Esterase (Negative) Urine RBC (0-5) /hpf Urine WBC (0-5) /hpf Ur Squamous Epith Cells (0-4) /hpf Urine Bacteria (None) /hpf Urine Opiates Screen (NotDetected) Ur Oxycodone Screen (NotDetected) Urine Methadone Screen (NotDetected) Ur Barbiturates Screen (NotDetected) U Tricyclic Antidepress (NotDetected) Ur Phencyclidine Scrn (NotDetected) Ur Amphetamines Screen (NotDetected) U Methamphetamines Scrn (NotDetected) U Benzodiazepines Scrn (NotDetected) Urine Cocaine Screen (NotDetected) U Marijuana (THC) Screen (NotDetected) SARS-CoV-2 (PCR) (Not Detectd) 05/28/25 Range/Units 13:26 WBC (4.50-10.00) 10*3/uL RBC (4.10-5.20) 10*6/uL Hgb (12.0-15.0) g/dL Hct (37.2-46.3) % MCV (80.0-97.0) fL MCH (27.0-32.0) pg MCHC (32.0-37.0) g/dL Plt Count (140-440) 10*3/uL MPV (9.5-12.2) fL Immature Gran % (Auto) % Neutrophils % % Lymphocytes % % Monocytes % % Eosinophils % % Basophils % % Immature Gran # (0.00-0.04) 10*3/uL Neutrophils # (1.80-7.70) 10*3/uL Lymphocytes # (0.90-5.00) 10*3/uL Monocytes # (0.20-1.00) 10*3/uL Eosinophils # (0.04-0.35) 10*3/uL Basophils # (0.00-0.10) 10*3/uL Sodium (137-145) mmol/L Potassium (3.5-5.1) mmol/L Chloride (98-107) mmol/L Carbon Dioxide (22-30) mmol/L Anion Gap mmol/L BUN (7-17) mg/dL Creatinine (0.52-1.04) mg/dL Est GFR (CKD-EPI)AfAm (>60 ml/min/1.73 sqM) Est GFR (CKD-EPI)NonAf (>60 ml/min/1.73 sqM) Glucose (74-99) mg/dL Estimated Ave Glu mg/dL mg/dL Hemoglobin A1c (<=6.0) % Calcium (8.4-10.2) mg/dL Total Bilirubin (0.2-1.3) mg/dL AST (14-36) U/L ALT (4-34) U/L Alkaline Phosphatase (38-126) U/L Total Protein (6.3-8.2) g/dL Albumin (3.5-5.0) g/dL Triglycerides 89.70 (0.00-149.00) mg/dL Cholesterol 154.00 (0.00-200.00) mg/dL LDL Cholesterol, Calc 96.5 (0.0-131.0) mg/dL VLDL Cholesterol, Calc 17.94 (5.00-40.00) mg/dL HDL Cholesterol 39.60 L (40.00-60.00) mg/dL Cholesterol/HDL Ratio 3.89 Ratio TSH (0.465-4.680) mIU/L Free T4 (0.78-2.19) ng/dL Urine Color Urine Appearance (Clear) Urine pH (5.0-8.0) Ur Specific Leon (1.001-1.035) Urine Protein (Negative) Urine Glucose (UA) (Negative) Urine Ketones (Negative) Urine Blood (Negative) Urine Nitrite (Negative) Urine Bilirubin (Negative) Urine Urobilinogen (<2.0) mg/dL Ur Leukocyte Esterase (Negative) Urine RBC (0-5) /hpf Urine WBC (0-5) /hpf Ur Squamous Epith Cells (0-4) /hpf Urine Bacteria (None) /hpf Urine Opiates Screen (NotDetected) Ur Oxycodone Screen (NotDetected) Urine Methadone Screen (NotDetected) Ur Barbiturates Screen (NotDetected) U Tricyclic Antidepress (NotDetected) Ur Phencyclidine Scrn (NotDetected) Ur Amphetamines Screen (NotDetected) U Methamphetamines Scrn (NotDetected) U Benzodiazepines Scrn (NotDetected) Urine Cocaine Screen (NotDetected) U Marijuana (THC) Screen (NotDetected) SARS-CoV-2 (PCR) (Not Detectd) Disposition Clinical Impression: Acute psychosis Disposition: TRANSFER TO PSYCH HOSP/UNIT Condition: Stable Is patient prescribed a controlled substance at d/c from ED?: No
[2025-05-28 13:34] LABS: Basophils # (A) 0.04 10*3/uL (0.00-0.10); Basophils % (A) 0.6 %; Eosinophils # (A) 0.11 10*3/uL (0.04-0.35); Eosinophils % (A) 1.6 %; HCT 40.2 % (37.2-46.3); HGB 13.6 g/dL (12.0-15.0); Lymphocytes # (A) 1.61 10*3/uL (0.90-5.00); Lymphocytes % (A) 24.1 %; MCH 30.4 pg (27.0-32.0); MCHC 33.8 g/dL (32.0-37.0); MCV 89.7 fL (80.0-97.0); Monocytes # (A) 0.62 10*3/uL (0.20-1.00); Monocytes % (A) 9.3 %; Neutrophils # (A) 4.29 10*3/uL (1.80-7.70); Neutrophils % (A) 64.3 %; Platelet Count 190 10*3/uL (140-440); RBC 4.48 10*6/uL (4.10-5.20); RDW 13.0 % (11.5-14.5); WBC 6.68 10*3/uL (4.50-10.00)
[2025-05-28 13:34] LABS: Bacteria,Urine Rare /hpf; Bilirubin,Urine Negative (Negative); Blood,Urine Negative (Negative); Color,Urine Colorless; Glucose,Urine (UA) Negative (Negative); Ketones,Urine Negative (Negative); Leukocyte Esterase,Urine Trace (Negative); Nitrite,Urine Negative (Negative); PH, Urine 6.5 (5.0-8.0); Protein,Urine Negative (Negative); RBC,Urine 1 /hpf (0-5); Specific Gravity,Urine 1.007 (1.001-1.035); Squamous Epithelial Cell,Urine <1 /hpf (0-4); Urobilinogen,Urine <2.0 mg/dL (<2.0); WBC,Urine 1 /hpf (0-5)
[2025-05-28 13:35] LABS: Barbiturate Screen,Urine Not Detected (NotDetected); Benzodiazepines Screen,Urine Not Detected (NotDetected); Opiate Screen,Urine Not Detected (NotDetected); Oxycodone Screen, Urine Not Detected (NotDetected); Phencyclidine Screen,Urine Not Detected (NotDetected); Tricyclic Antidepressant,Urine Not Detected (NotDetected); Urn Cannabinoid Scrn Not Detected (NotDetected)
[2025-05-28 13:47] LABS: ALT 24 U/L (4-34); AST 17 U/L (14-36); African American GFR (CKD) 85 (>60 ml/min/1.73 sqM); Albumin 4.1 g/dL (3.5-5.0); Alkaline Phosphatase 46 U/L (38-126); Anion Gap 12 mmol/L; Blood Urea Nitrogen 17 mg/dL (7-17); Calcium 9.4 mg/dL (8.4-10.2); Carbon Dioxide 19 mmol/L (22-30); Chloride 112 mmol/L (98-107); Glucose 108 mg/dL (74-99); Non-African American GFR(CKD) 74 (>60 ml/min/1.73 sqM); Potassium 4.2 mmol/L (3.5-5.1); Sodium 143 mmol/L (137-145); Total Protein 6.4 g/dL (6.3-8.2)
[2025-05-28 14:43] LABS: T4, Free (Free Thyroxine) 2.46 ng/dL (0.78-2.19)
[2025-05-28] MEDS ORDERED: HALOPERIDOL LACTATE 5 MG/ML 1 ML VIAL IM PRN (17:56)
[2025-05-28] MEDS ORDERED: LORazepam 1 MG/0.5 ML VIAL IM PRN (17:56)
[2025-05-28] MEDS ORDERED: LORazepam 1 MG TAB PO PRN (17:56)
[2025-05-28] MEDS: PRAZOSIN 1 MG CAP PO SCH (20:41)
[2025-05-28] MEDS: TOPIRAMATE 100 MG TAB PO SCH (20:41)
[2025-05-28] MEDS: MAG HYDROX/AL HYDROX/SIMETH 355 ML BOTTLE PO PRN (20:42)
[2025-05-28] MEDS: diphenhydrAMINE 25 MG CAP PO PRN (20:45)
[2025-05-28] MEDS: LORazepam 1 MG TAB PO PRN (20:45)
[2025-05-28] MEDS ORDERED: TOPIRAMATE 25 MG TAB PO SCH (21:00)
[2025-05-28] MEDS: ACETAMINOPHEN TAB 325 MG TAB PO PRN (21:32)
[2025-05-29] MEDS: metFORMIN 500 MG TAB PO SCH (08:02)
[2025-05-29] MEDS: LEVOTHYROXINE 88 MCG TAB PO SCH (08:02)
[2025-05-29] MEDS: METOPROLOL TARTRATE 50 MG TAB PO SCH (08:07)
[2025-05-29] MEDS ORDERED: NON FORMULARY DRUG (Vitamin B Complex [Vitamin B Complex] 1 EACH Capsule) PO SCH (09:00)
[2025-05-29 12:00] LABS: Cholesterol 154.00 mg/dL (0.00-200.00); HDL Cholesterol 39.60 mg/dL (40.00-60.00); LDL Cholesterol,Calculated 96.5 mg/dL (0.0-131.0); Triglycerides 89.70 mg/dL (0.00-149.00); VLDL Calculation 17.94 mg/dL (5.00-40.00)
[2025-05-29] MEDS: PALIPERIDONE 6 MG TAB.ER.24 PO SCH (13:02)
--- NOTE | 2025-05-29 13:09 | P.HP ---
Psychiatric H&P - . H&P Date: 05/29/25 History & Physical: Allergies Allergy/AdvReac Type Severity Reaction Status Date / Time morphine Allergy Intermediate Itching Verified 05/28/25 14:53 adhesive Allergy Unknown Unknown Verified 05/28/25 19:15 latex Allergy Unknown Unknown Verified 05/28/25 19:15 clarithromycin from Biaxin Allergy Anaphylaxis Verified 05/28/25 14:53 ibuprofen from Motrin AdvReac cannot Verified 05/28/25 14:53 take because of Bariatric surgery Vital Signs Temp 98.0 F 05/29/25 08:08 Pulse 105 H 05/29/25 08:08 Resp 20 05/29/25 08:08 BP 98/62 05/29/25 11:22 Pulse Ox 97 05/29/25 08:08 FiO2 Intake & Output 05/28/25 05/29/25 05/29/25 18:59 06:59 18:59 Weight 107.411 kg 107.411 kg Laboratory Last Values WBC 6.68 10*3/uL (4.50-10.00) 05/28/25 13:26 RBC 4.48 10*6/uL (4.10-5.20) 05/28/25 13:26 Hgb 13.6 g/dL (12.0-15.0) 05/28/25 13:26 Hct 40.2 % (37.2-46.3) 05/28/25 13:26 MCV 89.7 fL (80.0-97.0) 05/28/25 13:26 MCH 30.4 pg (27.0-32.0) 05/28/25 13:26 MCHC 33.8 g/dL (32.0-37.0) 05/28/25 13:26 Plt Count 190 10*3/uL (140-440) 05/28/25 13:26 MPV 10.1 fL (9.5-12.2) 05/28/25 13:26 Immature Gran % (Auto) 0.1 % 05/28/25 13:26 Neutrophils % 64.3 % 05/28/25 13:26 Lymphocytes % 24.1 % 05/28/25 13:26 Monocytes % 9.3 % 05/28/25 13:26 Eosinophils % 1.6 % 05/28/25 13:26 Basophils % 0.6 % 05/28/25 13:26 Immature Gran # 0.01 10*3/uL (0.00-0.04) 05/28/25 13:26 Neutrophils # 4.29 10*3/uL (1.80-7.70) 05/28/25 13:26 Lymphocytes # 1.61 10*3/uL (0.90-5.00) 05/28/25 13:26 Monocytes # 0.62 10*3/uL (0.20-1.00) 05/28/25 13:26 Eosinophils # 0.11 10*3/uL (0.04-0.35) 05/28/25 13: Basophils # 0.04 10*3/uL (0.00-0.10) 05/28/25 13:26 Sodium 143 mmol/L (137-145) 05/28/25 13:26 Potassium 4.2 mmol/L (3.5-5.1) 05/28/25 13: Chloride 112 mmol/L (98-107) H 05/28/25 13:26 Carbon Dioxide 19 mmol/L (22-30) L 05/28/25 13:26 Anion Gap 12 mmol/L 05/28/25 13:26 BUN 17 mg/dL (7-17) 05/28/25 13:26 Creatinine 0.90 mg/dL (0.52-1.04) 05/28/25 13:26 Est GFR (CKD-EPI)AfAm 85 (>60 ml/min/1.73 sqM) 05/28/25 13:26 Est GFR (CKD-EPI)NonAf 74 (>60 ml/min/1.73 sqM) 05/28/25 13:26 Glucose 108 mg/dL (74-99) H 05/28/25 13:[address] Glu mg/dL 108 mg/dL 05/28/25 13:26 Hemoglobin A1c 5.4 % (<=6.0) 05/28/25 13:26 Calcium 9.4 mg/dL (8.4-10.2) 05/28/25 13:26 Total Bilirubin 0.3 mg/dL (0.2-1.3) 05/28/25 13:26 AST 17 U/L (14-36) 05/28/25 13:26 ALT 24 U/L (4-34) 05/28/25 13:26 Alkaline Phosphatase 46 U/L (38-126) 05/28/25 13:26 Total Protein 6.4 g/dL (6.3-8.2) 05/28/25 13: Albumin 4.1 g/dL (3.5-5.0) 05/28/25 13:26 Triglycerides 89.70 mg/dL (0.00-149.00) 05/28/25 13:26 Cholesterol 154.00 mg/dL (0.00-200.00) 05/28/25 13:26 LDL Cholesterol, Calc 96.5 mg/dL (0.0-131.0) 05/28/25 13: VLDL Cholesterol, Calc 17.94 mg/dL (5.00-40.00) 05/28/25 13: HDL Cholesterol 39.60 mg/dL (40.00-60.00) L 05/28/25 13: Cholesterol/HDL Ratio 3.89 Ratio 05/28/25 13: TSH <0.015 mIU/L (0.465-4.680) L 05/28/25 13: Free T4 2.46 ng/dL (0.78-2.19) H 05/28/25 13:26 Urine Color Colorless 05/28/25 12:49 Urine Appearance Clear (Clear) 05/28/25 12:49 Urine pH 6.5 (5.0-8.0) 05/28/25 12:49 Ur Specific Edwards 1.007 (1.001-1.035) 05/28/25 12:49 Urine Protein Negative (Negative) 05/28/25 12:49 Urine Glucose (UA) Negative (Negative) 05/28/25 12:49 Urine Ketones Negative (Negative) 05/28/25 12:49 Urine Blood Negative (Negative) 05/28/25 12:49 Urine Nitrite Negative (Negative) 05/28/25 12:49 Urine Bilirubin Negative (Negative) 05/28/25 12:49 Urine Urobilinogen <2.0 mg/dL (<2.0) 05/28/25 12:49 Ur Leukocyte Esterase Trace (Negative) H 05/28/25 12:49 Urine RBC 1 /hpf (0-5) 05/28/25 12:49 Urine WBC 1 /hpf (0-5) 05/28/25 12:49 Ur Squamous Epith Cells <1 /hpf (0-4) 05/28/25 12:49 Urine Bacteria Rare /hpf (None) H 05/28/25 12:49 Urine Opiates Screen Not Detected (NotDetected) 05/28/25 12:49 Ur Oxycodone Screen Not Detected (NotDetected) 05/28/25 12:49 Urine Methadone Screen Not Detected (NotDetected) 05/28/25 12:49 Ur Barbiturates Screen Not Detected (NotDetected) 05/28/25 12:49 U Tricyclic Antidepress Not Detected (NotDetected) 05/28/25 12:49 Ur Phencyclidine Scrn Not Detected (NotDetected) 05/28/25 12:49 Ur Amphetamines Screen Not Detected (NotDetected) 05/28/25 12:49 U Methamphetamines Scrn Not Detected (NotDetected) 05/28/25 12:49 U Benzodiazepines Scrn Not Detected (NotDetected) 05/28/25 12:49 Urine Cocaine Screen Not Detected (NotDetected) 05/28/25 12:49 U Marijuana (THC) Screen Not Detected (NotDetected) 05/28/25 12:49 SARS-CoV-2 (PCR) Not Detected (Not Detectd) 05/28/25 12:59 05/29/25 12:53 IDENTIFYING DATA: Patient is a 54-year-old female, , on disability CHIEF COMPLAINT: Psychosis HPI: Patient presented to the hospital for mental health evaluation. Per EPS, "Patient brought into ER by EMS with [facility] recommendation. Patient assessed in ER14 from [id number]. Patient observed to be laying in hospital stretcher, wearing hospital safety gown. Patient has disheveled appearance, laying with blanket covering body, and does not make eye contact with entry writer. Patient observed to shift in bed from side to side during assessment, observed to often staring off with no response or slow response. Patient verbalizes that she has been feeling off, when asked to describe states that she feels like nothing is real. Patient continues to elaborate to state that she feels like she is living in a dream and cannot tell what is real and what is not. Patient states these symptoms worsened when starting new medication 05/14/25 called Iloperidone. Patient denies auditory or visual hallucinations at this time. Patient denies current suicidal ideations, but states she has suicidal thoughts about 3x/week. States she had a suicide attempt last month by overdose. States she was having auditory hallucinations at the time telling her to kill herself. Patient denies homicidal ideations. Patient denies current auditory and visual hallucinations. Patient observed to be responding to internal stimuli. Patient reports difficulty sleeping and poor appetite at this time. Patient PMH includes sleep apnea, CPAP noted but patient denies using. Patient also has thyroid disorder, seizure disorder (unknown last seizure), and hypertension." Patient seen and evaluated in her room. Patient displayed increased latency especially in the beginning of the interview that lessened toward the end, judaism preoccupation with predominant paranoia. She states being confused, stating "a lot of lies have been going on". Patient would not elaborate further on the details with this however with probing she did mention that every body has been lying to her. She questions whether this staff gave her the right dose of her Synthroid this morning. She describes dissociation, feeling as though she is in and out of a dream, questioning what is real and what is fake. Patient is aware of her paranoia and is aware that she is not at baseline. She states she has been praying to God and asking him for remorse however again would not elaborate further on the details with this. She denied any issues with sleep. Patient denies any suicidal or homicidal ideations intent or plan. At this time patient denies any auditory or visual hallucinations. Patient denies any flight of ideas racing thoughts and increased in goal directed behavior. Patient admits to using no substances. PAST PSYCHIATRIC HISTORY: Patient has a history of schizoaffective disorder, panic disorder, PTSD. Patient is currently prescribed Fanapt 1 mg twice daily, prazosin 1 mg at bedtime, Prozac 20 mg daily. She has tried Risperdal, Zyprexa, Prolixin, Depakote in the past. Patient reports several inpatient hospitalizations most recent being 1 month ago[address] Patient sees Dr. Vera at [facility]. Patient reports recent suicide attempt 1 month ago via OD. PMH: as per ER note ALLERGIES: as per EMR SUBSTANCE USE HISTORY: Denies FAMILY PSYCHIATRIC/SUBSTANCE USE HISTORY: Patient states both her sister and son suffer from mental illness SOCIAL HISTORY: Patient is and has 3 children. She is on SSD, lives with her . MENTAL STATUS EXAM: General Appearance: Patient appears to be stated age is alert, directable, and attempts to cooperate. Patient appears to have poor hygiene and grooming. Behavior: Patient is laying without any agitated behavior. Speech: Patient's speech revealed increase in latency, low volume Mood/Affect: Patient reports their mood is "okay", affect is congruent and constricted. Suicidality/Homicidality: Patient denies having any homicidal ideation intent or plan. Denies any suicidal ideations intent or plan Perceptions: Patient denies any visual hallucinations and denies any auditory hallucinations Though content/process: There is evidence of paranoia, judaism preoccupation Memory and concentration: AOX3, grossly intact for the purposes of this session. Can spell "WORLD" backwards Judgment and insight: Poor STRENGTHS/WEAKNESSES: strength is that patient is resilient, adherent with medications with support. Weakness is that patient has poor judgment and is impulsive INTELLECT: Average IMPRESSIONS: Schizoaffective disorder, depressed type PTSD PLAN: -Patient is admitted under voluntary status to MHU for stabilization of psychiatric symptoms and safety. Patient has signed adult voluntary form and and is placed in patient's chart. -Medications : Start Invega 6 mg daily for psychosis, continue Prozac 20 mg daily for depression, prazosin 1 mg at bedtime for nightmares - Ativan and Haldol PRN for agitation/aggression -Patient was informed of the risks, benefits and side effects of the medication and patient verbally consented to taking the medications. Patient signed med consent form and was placed in chart. Patient offered and declined patient education sheet for psychotropic medications. -Internal Medicine consult to perform medical evaluation and physical. -NRT -not needed as patient does not smoke -SW on board for discharge planning. Encourage patient to participate in groups to work on coping skills.
[2025-05-29] MEDS ORDERED: MECLIZINE 25 MG TAB PO PRN (21:44)
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
[2025-05-30] MEDS: LEVOTHYROXINE 75 MCG TAB PO SCH (05:45)
[2025-05-30] MEDS ORDERED: LEVOTHYROXINE 88 MCG TAB PO SCH (06:30)
[2025-05-30] MEDS: PANTOPRAZOLE 40 MG TABLET PO SCH (09:17)
[2025-05-30] MEDS: ONDANSETRON ODT 4 MG TAB PO PRN (09:24)
[2025-05-30] MEDS: MAGNESIUM HYDROXIDE 2,400 MG/30 ML CUP PO PRN (09:24)
--- NOTE | 2025-05-30 12:20 | P.PN ---
Progress Note - Text Progress Note Date: 05/30/25 Interval History: Patient was seen laying in bed and was directable and agreeable to speak with commercial underwriter in the room. Patient attended group today, has been adherent with her psychotropic medications but continues to express confusion. She continues to also have increased latency to responses. She continues to express difficulties distinguishing what is real and what is not real. She mentions taking as needed Haldol last night to help with this but mentioned having some "jerking movements" after taking this. AIMs grossly negative today. She reports feeling safe here in the hospital. She has not spoken to her . Patient was not as religiously preoccupied as when seen yesterday. She is sleeping okay. At this time patient denies any suicidal or homicidal ideations, intent or plan. Patient denies any auditory, visual hallucinations and denies any paranoia or delusions. Patient denies any side effects from the medications and has been compliant with meds. Mental Status Exam: General Appearance: Patient appears to be stated age is alert, directable, and cooperative. Behavior: Patient is calmly laying without any agitated behavior. She continues to be intermittently confused Speech: Patient's speech is soft tone, increased latency Mood/Affect: Mood is improving mildly, affect is congruent and constricted. Suicidality/Homicidality: Patient denies having any suicidal or homicidal ideation intent or plan. Perceptions: Patient denies any visual hallucinations and denies any auditory hallucinations Though content/process: Paranoia appears to be lessening as well as religion preoccupation today Memory and concentration: AOX3, grossly intact for the purposes of this session Judgment and insight: Improving mildly Assessment Schizoaffective disorder, depressed type PTSD History of TBI Plan: -Patient continues to meet criteria for inpatient psychiatric admission for symptom stabilization and safety. Patient has signed adult voluntary form and medication consent and was placed in patient's chart. -Medications: Continue Invega 6 mg daily for psychosis, Prozac 20 mg daily for depression, prazosin 1 mg at bedtime for nightmares. Patient is also on Topamax 150 mg twice daily prescribed by her neurologist for seizures however this can also contribute to confusion and slowing of cognitive functioning and will thus encourage patient to reach out to her neurologist upon discharge to change this medication -When necessary Ativan and Haldol for agitation/aggression. -Labs: TSH was decreased, free T4 increased, medical team did decrease her Synthroid and recommend a repeat TSH with free T4 in 6 weeks -SW on board for discharge planning. Encouraged the patient to participate in milieu.
[2025-05-31] MEDS: PALIPERIDONE 3 MG TAB.ER.24 PO ONE (10:59)
--- NOTE | 2025-05-31 11:20 | P.PN ---
Progress Note - Text Progress Note Date: 05/31/25 Interval History: Patient was seen in group and was directable and agreeable to speak with signwriter in the office. Patient appeared more reactive, quicker to respond to questions. She continues to report confusion with difficulties distinguishing reality from fiction. She states she has been on Topamax for the past year for seizures with her last seizure being in September. She states having a history of partial seizures and that her Topamax initially was increased to 200 mg twice daily how ever her neurologist Dr. Hearn ended up decreasing this down to 150 twice daily for unknown reasons. She states not having a follow-up appointment with him at this was encouraged given Topamax's ability to cause cognitive slowing that could be contributing to her current presentation. She reports auditory hallucinations largely at nighttime while she is asleep. She states the voices say that she is going to tonight, tell her to do things however it is not disturbing for her as she realizes that this voice is not her own and she does not believe them. She continues to express some paranoia relating to feeling like she was lied to, less religiously preoccupied today. She has been attending to her ADLs. At this time patient denies any suicidal or homicidal ideations, intent or plan. Patient denies any visual hallucinations and denies any delusions. Patient denies any side effects from the medications and has been compliant with meds. Mental Status Exam: General Appearance: Patient appears to be stated age is alert, directable, and cooperative. She has fair grooming and hygiene, confusion is lessening Behavior: Patient is calmly seated without any agitated behavior. Speech: Patient's speech is fluent and nonpressured. Normal latency today Mood/Affect: Mood is improving mildly, affect is congruent and more reactive. Suicidality/Homicidality: Patient denies having any suicidal or homicidal ideation intent or plan. Perceptions: Patient denies any visual hallucinations and denies any current auditory hallucinations Though content/process: There is evidence of mild paranoia, less caodaism preoccupation Memory and concentration: AOX3, grossly intact for the purposes of this session Judgment and insight: Improving mildly Assessment Schizoaffective disorder, depressed type PTSD History of TBI Plan: -Patient continues to meet criteria for inpatient psychiatric admission for symptom stabilization and safety. Patient has signed adult voluntary form and medication consent and was placed in patient's chart. -Medications: Increase Invega to 9 mg daily for psychosis, continue Prozac 20 mg daily for depression, prazosin 1 mg at bedtime for nightmares. Patient was informed to make a follow-up appointment with her neurologist today regarding switching her Topamax to a different agent that does not cause cognitive slowing -When necessary Ativan and Haldol for agitation/aggression. -Labs: TSH was decreased, free T4 increased however medical team did decrease her Synthroid and recommended a repeat TSH with free T4 in 6 weeks - on board for discharge planning. Encouraged the patient to participate in milieu. Anticipate discharge early next week pending stabilization in psychosis
[2025-05-31] MEDS: CYCLOBENZAPRINE 10 MG TAB PO PRN (20:39)
[2025-06-01] MEDS: PALIPERIDONE 3 MG TAB.ER.24 PO SCH (08:46)
--- NOTE | 2025-06-01 15:47 | P.PN ---
Progress Note - Text Progress Note Date: 06/01/25 Dictation was produced using [employer] dictation software. Please excuse any grammatical, word or spelling errors. Interval history: Patient was seen in the hallway and was directable and agreeable to speak with the publications writer in the office for psychiatric follow-up. The patient states that she is feeling very good today. States that her mood is "good." She reported depression and anxiety to be at the low side, she rated both at 3/10. She denied any current SI/HI or self harm, denied any current AVH. She states that she slept well last night, it is reported that she slept 7 hours overnight. States that her [id number]-ocm visited her today and it went well. She has been taking her medications, denied any current side effects, denied any muscle stiffness, rigidity, abnormal movement, or drooling. States that she hear things during her sleep, and reported that it is like a bad dream, and she woke up from those intrusive dreams. States that she has a long history of PTSD. States that she has a lot of stress at home and that has been affecting her mentality. Mental Status Exam: General Appearance: Patient appears to be stated age is alert, directable, and cooperative. She has fair grooming and hygiene, confusion is lessening Behavior: Patient is calmly seated without any agitated behavior. Speech: Patient's speech is fluent and nonpressured. Normal latency today Mood/Affect: Mood is improving mildly, affect is congruent and more reactive. Suicidality/Homicidality: Patient denies having any suicidal or homicidal ideation intent or plan. Perceptions: Patient denies any visual hallucinations and denies any current auditory hallucinations Though content/process: There is evidence of mild paranoia, less voodoo preoccupation Memory and concentration: AOX3, grossly intact for the purposes of this session Judgment and insight: Improving mildly Assessment Schizoaffective disorder, depressed type PTSD History of TBI Assessment/Plan: Continue with current diagnosis. Patient continues to meet criteria for inpatient psychiatric admission for symptom stabilization and saf ety. Patient will be maintained on current psychotropic medication regimen which include Invega 9 mg p.o. daily which was increased Tuesday, Prozac 20 mg p.o. daily, prazosin 1 mg p.o. at bedtime, she also take Topamax 150 mg p.o. twice daily for seizures. Psychoeducation was provided, risk, benefit and side effect discussed, patient denied any current side effects, denied any muscle stiffness, rigidity, abnormal movement, or drooling. We will continue to monitor for medication compliance and for any psychotropic medication side effects. Will continue to monitor ongoing response to treatment. Encouraged participation in milieu.
--- NOTE | 2025-06-02 14:20 | P.PN ---
Progress Note - Text Progress Note Date: 06/02/25 Dictation was produced using [employer] dictation software. Please excuse any grammatical, word or spelling errors. Interval history: Patient was seen in [facility] and was directable and agreeable to speak with the web content writer in the office for psychiatric follow-up. The patient states that she is feeling well today. States that her mood is "very well," states that she slept well last night, states that depression and anxiety are at the low side and rated both at 2/10, denied any current SI/HI or self harm, denied any AVH. States that she has been attending all of the groups and reported that to be helpful. States that she has been taking her medications, denied any side effects. Denied any muscle stiffness, rigidity, abnormal movement, or drooling. States that she has been in contact with her family. Mental Status Exam: General Appearance: Patient appears to be stated age is alert, directable, and cooperative. She has fair grooming and hygiene, no confusion today. Behavior: Patient is calmly seated without any agitated behavior. Speech: Patient's speech is fluent and nonpressured. Normal latency Mood/Affect: Mood is improving mildly, affect is congruent and more reactive. Suicidality/Homicidality: Patient denies having any suicidal or homicidal ideation intent or plan. Perceptions: Patient denies any visual hallucinations and denies any current auditory hallucinations Though content/process: There is evidence of mild paranoia, less sabianist preoccupation Memory and concentration: AOX3, grossly intact for the purposes of this session Judgment and insight: Improving mildly Impression Schizoaffective disorder, depressed type PTSD History of TBI Assessment/Plan: Continue with current diagnosis. Patient continues to meet criteria for inpatient psychiatric admission for symptom stabilization and safety. Patient will be maintained on current psychotropic medication regimen which include Invega 9 mg p.o. daily, Prozac 20 mg p.o. daily, prazosin 1 mg p.o. at bedtime, she also take Topamax 150 mg p.o. twice daily for seizures. No changes today since patient has been progressing well. Psychoeducation was provided, risk, benefit and side effect discussed, patient denied any current side effects, denied any muscle stiffness, rigidity, abnormal movement, or drool ing. We will continue to monitor for medication compliance and for any psychotropic medication side effects. No changes today. Will continue to monitor ongoing response to treatment. Encouraged participation in milieu.
[2025-06-03] MEDS: ERGOCALCIFEROL 1,250 MCG (50,000 IU) CAPSULE PO SCH (08:38)
[2025-06-03] MEDS ORDERED: PRAZOSIN 1 MG CAP PO PRN (10:17)
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
[2025-06-03 22:53] VITALS: TEMP 97.3
--- NOTE | 2025-06-04 07:10 | XR ---
EXAMINATION TYPE: XR abdomen 1V DATE OF EXAM: 06/03/2025 10:09 PM COMPARISON: None CLINICAL INDICATION: Female, 54 years old with history of Constipation; PHH, pain TECHNIQUE: One radiographic view of the abdomen was obtained. FINDINGS: No evidence for free intraperitoneal air. Scattered mild stool throughout the colon with air and stool extending distally to the rectum. No dil ated small bowel or differential air-fluid levels. A few small right-sided phleboliths. No suspicious calcifications are seen. IMPRESSION: No evidence for free air or bowel obstruction. Mild overall stool burden. [facility], Workstation: [email or web address], 06/04/2025 7:08 AM
[2025-06-04] MEDS: DOCUSATE 100 MG CAP PO STA (09:28)
[2025-06-04 11:19] VITALS: BP 93/64; PULSE 93; RESP 16
--- NOTE | 2025-06-04 13:18 | P.DS ---
Providers Date of admission: 05/28/25 17:50 Expected date of discharge: 06/04/25 Attending physician: Kely Joe MD Consults: 05/28/25 17:56 Consult Physician Routine Consulting Provider: Kajal Navas Consult Reason/Comments: History and Physical, New Admission Do you want consulting provider notified?: Yes Primary care physician: Fredy Long - Discharge Diagnosis(es) (1) Schizoaffective disorder, depressive type Current Visit: Yes Status: Acute Priority: High (2) PTSD (post-traumatic stress disorder) Current Visit: Yes Status: Acute Priority: Low Hospital Course: Admission HPI: Admission note was completed by bond writer "Patient presented to the hospital for mental health evaluation. Per EPS, "Patient brought into ER by EMS with [facility] recommendation. Patient assessed in ER14 from [id number]. Patient observed to be laying in hospital stretcher, wearing hospital safety gown. Patient has disheveled appearance, laying with blanket covering body, and does not make eye contact with bond writer. Patient observed to shift in bed from side to side during assessment, observed to often staring off with no response or slow response. Patient verbalizes that she has been feeling off, when asked to describe states that she feels like nothing is real. Patient continues to elaborate to state that she feels like she is living in a dream and cannot tell what is real and what is not. Patient states these symptoms worsened when starting new medication 05/14/25 called Iloperidone. Patient denies auditory or visual hallucinations at this time. Patient denies current suicidal ideations, but states she has suicidal thoughts about 3x/week. States she had a suicide attempt last month by overdose. States she was having auditory hallucinations at the time telling her to kill herself. Patient denies homicidal ideations. Patient denies current auditory and visual hallucinations. Patient observed to be responding to internal stimuli. Patient reports difficulty sleeping and poor appetite at this time. Patient PMH includes sleep apnea, CPAP noted but patient denies using. Patient also has thyroid disorder, seizure disorder (unknown last seizure), and hypertension." Patient seen and evaluated in her room. Patient displayed increased latency especially in the beginning of the interview that lessened toward the end, methodist preoccupation with predominant paranoia. She states being confused, stating "a lot of lies have been going on". Patient would not elaborate further on the details with this however with probing she did mention that every body has been lying to her. She questions whether this staff gave her the right dose of her Synthroid this morning. She describes dissociation, feeling as though she is in and out of a dream, questioning what is real and what is fake. Patient is aware of her paranoia and is aware that she is not at baseline. She states she has been praying to God and asking him for remorse however again would not elaborate further on the details with this. She denied any issues with sleep. Patient denies any suicidal or homicidal ideations intent or plan. At this time patient denies any auditory or visual hallucinations. Patient denies any flight of ideas racing thoughts and increased in goal directed behavior. Patient admits to using no substances." Hospital course: Upon admission to the unit patient was directable and agreeable to commence treatment and signed adult voluntary form. Patient got along well with other patients on the unit and followed unit protocol. Patient was compliant with the medications and denied any side effects throughout hospital course. Patient was started on Invega and this is increased to 9 mg daily for psychosis, Prozac 20 mg daily for depression, prazosin changed to 1 mg as needed at bedtime for nightmares. Patient spoke of her stressors and engaged in therapy both group and individual. Patient was also seen by medical team for history and physical exam. Patient's TSH was low with resultant free T4 elevated thus medical decrease patient's Synthroid down to 150 micrograms and recommended a repeat TSH with free T4 in 6 weeks. Throughout the course of the hospitalization patient gradually improved with regards to mood, anxiety, sleep and returned back to their baseline level of functioning. On the day of discharge patient denied any suicidal or homicidal ideations intent or plan denied any auditory or visual hallucinations. The patient denied any access to guns or weapons. Patient denied any paranoia and did not endorse any delusions. Patient does not have a significant history of substance abuse and was counseled on abstaining from all substances including alcohol and marijuana. Patient was also counseled on the medications and need for regular compliance and was encouraged to follow-up with their outpatient appointment for mental health and also for primary care. Prior to discharge a family meeting will be arranged by social services specialist to answer any questions and ensure safety upon discharge including making sure that guns/weapons are either removed from the home or locked away. Patient to be discharged home with and will follow-up with [facility] Mental status exam: General Appearance: Patient appears to be stated age is alert, pleasant, and cooperative. Patient is in no acute distress and has improved hygiene and grooming Behavior: Patient is calmly seated without any agitated behavior. Speech: Patient's speech is fluent and nonpressured. Mood/Affect: Patient reports their mood is "better", affect is congruent and euthymic. Suicidality/Homicidality: Patient denies having any suicidal or homicidal ideation intent or plan. Perceptions: Patient denies any auditory or visual hallucinations. Though content/process: There is no evidence of any delusional thought content and thought process is linear and goal-directed. Memory and concentration: AOX3, grossly intact for the purposes of this session. Can spell "WORLD" backwards correctly. Judgment and insight: Fair Impression: Schizoaffective disorder, depressed type PTSD Plan: -Continue with discharge today as patient has improved and stabilized psychiatrically and is not currently an imminent threat to themself and/or others. -Continue medications: Invega 9 mg daily, Prozac 20 mg daily, prazosin 1 mg as needed at bedtime -Patient was counseled on the need for medication compliance and appropriate follow-up at mental health and also primary care for medical issues. Patient verbalized understanding and agreed. -Social work to help coordinate patients discharge today. also to ensure safe home environment that guns/weapons are either removed from the home or locked away. Social work also to arrange for patients follow up appointments with [facility] for psychiatric care along with follow up with primary care provider. -Patient counseled on abstaining from recreational drugs and marijuana and alcohol. Was informed/educated on the adverse effects on their physical and mental health. Patient verbally agreed and understood. -Patient was instructed to return to the hospital or seek immediate medical care if their psychiatric or medical symptoms do worsen or reoccur. Abnormal Labs 05/28/25 05/28/25 05/28/25 12:49 13:26 13:26 Chloride 112 H Carbon Dioxide 19 L Glucose 108 H HDL Cholesterol 39.60 L TSH <0.015 L Free T4 2.46 H Ur Leukocyte Esterase Trace H Urine Bacteria Rare H Allergies Allergy/AdvReac Type Severity Reaction Status Date / Time morphine Allergy Intermediate Itching Verified 05/28/25 14:53 adhesive Allergy Unknown Unknown Verified 05/28/25 19:15 latex Allergy Unknown Unknown Verified 05/28/25 19:15 clarithromycin [From Biaxin] Allergy Anaphylaxis Verified 05/28/25 14:53 ibuprofen [From Motrin] AdvReac cannot Verified 05/28/25 14:53 take because of Bariatric surgery Vital Signs Temp 97.3 F L 06/03/25 21:00 Pulse 93 06/04/25 09:00 Resp 16 06/04/25 09:00 BP 93/64 06/04/25 09:00 Pulse Ox 97 06/03/25 21:00 FiO2 Patient Condition at Discharge: Stable Plan - Discharge Summary Discharge Rx Participant: No New Discharge Prescriptions: New Cyclobenzaprine [Flexeril] 10 mg PO TID PRN tab PRN Reason: Muscle Spasm Paliperidone [Invega] 9 mg PO DAILY 30 Days #90 tab Levothyroxine Sodium [Synthroid] 150 mcg PO DAILY@0630 30 Days #60 tab Pantoprazole [Protonix] 40 mg PO AC-BRKFST tab Continue Topiramate [Topamax] 50 mg PO BID Metoprolol Tartrate [Lopressor] 50 mg PO DAILY Iloperidone [Fanapt] 1 mg PO BID Prazosin [Minipress] 1 mg PO HS FLUoxetine HCL [PROzac] 20 mg PO DAILY 30 Days #30 cap Topiramate [Topamax] 100 mg PO BID 30 Days #60 tab Vitamin B Complex 1 cap PO DAILY metFORMIN HCL 1,000 mg PO DAILY Ergocalciferol [Vitamin D2 (1250 Mcg = 78089 Iu)] 1,250 mcg PO MO Discontinued diphenhydrAMINE [Benadryl] 50 mg PO BID PRN PRN Reason: Allergy Symptoms Ondansetron [Zofran] 4 mg PO BID PRN PRN Reason: Nausea Meclizine [Antivert] 25 mg PO BID PRN PRN Reason: Vertigo Ibuprofen [Motrin] 600 mg PO BID PRN PRN Reason: Pain Levothyroxine Sodium [Synthroid] 175 mcg PO DAILY Meloxicam [Mobic] 15 mg PO DAILY PRN PRN Reason: Pain Discharge Medication List Ergocalciferol [Vitamin D2 (1250 Mcg = 83027 Iu)] 1,250 mcg PO MO 05/28/25 [History] Iloperidone [Fanapt] 1 mg PO BID 05/28/25 [History] Metoprolol Tartrate [Lopressor] 50 mg PO DAILY 05/28/25 [History] Prazosin [Minipress] 1 mg PO HS 05/28/25 [History] Topiramate [Topamax] 50 mg PO BID 05/28/25 [History] Vitamin B Complex 1 cap PO DAILY 05/28/25 [History] metFORMIN HCL 1,000 mg PO DAILY 05/28/25 [History] Cyclobenzaprine [Flexeril] 10 mg PO TID PRN tab 06/04/25 [Rx] FLUoxetine HCL [PROzac] 20 mg PO DAILY 30 Days #30 cap 06/04/25 [Rx] Levothyroxine Sodium [Synthroid] 150 mcg PO DAILY@30 30 Days #60 tab 06/04/25 [Rx] Paliperidone [Invega] 9 mg PO DAILY 30 Days #90 tab 06/04/25 [Rx] Pantoprazole [Protonix] 40 mg PO AC-BRKFST tab 06/04/25 [Rx] Topiramate [Topamax] 100 mg PO BID 30 Days #60 tab 06/04/25 [Rx] Follow up Appointment(s)/Referral(s): Fredy Long MD [Primary Care Provider] - 1-2 days [facility] [NON-STAFF] - 06/06/25 3:30 pm (Dr. Vera 06/10/25 @ 9:00 for medications [place] at [place] Office 06/06/25 @ 3:30) Patient Instructions/Handouts: Schizoaffective Disorder (DC), Post Traumatic Stress Disorder (DC) Activity/Diet/Wound Care/Special Instructions: [facility] Discharge Info Avoid the use of street drugs and alcohol. Take all medications as prescribed. When you are in need of refills on your medications, please contact your outpatient medical provider and/or outpatient psychiatrist. Please go to your scheduled outpatient appointments for aftercare treatment. If symptoms return or become worse, call the crisis line at or and/or visit the nearest emergency room for assistance. National Suicide and Crisis Lifeline - call or text 988.Medical physician recommends to follow up outpatient in 4-6 weeks to have thyroid levels checked again. Recommendations to have an EMG outpatient on bilateral upper extremities for probable bilateral carpal tunnel. Discharge Disposition: HOME SELF-CARE
== END 2025-06-04 14:09 | disposition home or self-care (01) | DRG 885 ==
LOC: SUPCPDRO 12:11 → EC 12:11 → 3MHU 17:50
PROVIDERS: ADMIT Psychiatry & Neurology Psychiatry; ATTEND Psychiatry & Neurology Psychiatry
DX: F25.1 Schizoaffective disorder, depressive type (principal); R45.851 Suicidal ideations; E11.9 Type 2 diabetes mellitus without complications; M06.9 Rheumatoid arthritis, unspecified; G40.909 Epilepsy, unspecified, not intractable, without status epilepticus; I10 Essential (primary) hypertension; I34.0 Nonrheumatic mitral (valve) insufficiency; K51.90 Ulcerative colitis, unspecified, without complications; E07.9 Disorder of thyroid, unspecified; F41.9 Anxiety disorder, unspecified; F43.10 Post-traumatic stress disorder, unspecified; G56.03 Carpal tunnel syndrome, bilateral upper limbs; K21.9 Gastro-esophageal reflux disease without esophagitis; Z79.1 Long term (current) use of non-steroidal anti-inflammatories (NSAID); Z79.84 Long term (current) use of oral hypoglycemic drugs; Z79.890 Hormone replacement therapy; Z79.899 Other long term (current) drug therapy; Z86.73 Personal history of transient ischemic attack (TIA), and cerebral infarction without residual deficits; Z87.820 Personal history of traumatic brain injury; Z87.891 Personal history of nicotine dependence; Z90.711 Acquired absence of uterus with remaining cervical stump; Z91.51 Personal history of suicidal behavior; Z91.040 Latex allergy status; Z88.1 Allergy status to other antibiotic agents; Z88.5 Allergy status to narcotic agent; Z88.6 Allergy status to analgesic agent
CPT/HCPCS: 36415; 74018; 80053; 80061; 80306; 81001; 82075; 83036; 84439; 84443; 85025; 87635; 93005; 99285